=== PATIENT | female | born 1955 | race Caucasian/White ===

== ENCOUNTER 2017-10-05 08:41 | Emergency (ER) | payer OTHER ==
[~2017-10-05] VITALS: Ht 149.9 cm; Wt 49.4 kg
[~2017-10-05 08:41] MED LIST: AMBIEN10 MG; CALAN SR 120MG120 MG; CATAPRES0.1 MG; CLONAZEPAM0.5 MG; DIOVAN320 MG; GLIMEPIRIDE1 MG; INTESTINEX1 CA1 PO; RYBIX ODT50 MG
[2017-10-05] MEDS ORDERED: ULTRACET PO (15:32)
[2017-10-05] MEDS ORDERED: CIPRO500 MG PO (15:32)
[2017-10-05] MEDS ORDERED: FLAGYL500MG PO (15:32)
== END 2017-10-05 16:39 | disposition home or self-care (01) ==
LOC: ER 08:41
DX: K62.5 Hemorrhage of anus and rectum (principal); K57.30 Diverticulosis of large intestine without perforation or abscess without bleeding

== ENCOUNTER → 2017-11-22 | Day surgery (SDC) | payer OTHER ==
[~2017-11-22] MED LIST changes: +CIPRO500 MG PO; +FLAGYL500MG PO; +ULTRACET PO
== END | disposition home or self-care (01) ==
LOC: ADM 11-17 14:30 → AMB-ENDOS 06:00
DX: K62.89 Other specified diseases of anus and rectum (principal)

== ENCOUNTER 2018-03-21 14:25 | Inpatient (IN) | payer OTHER ==
[~2018-03-21] VITALS: Ht 149.9 cm; Wt 49.0 kg
[~2018-03-21 14:25] MED LIST changes: +AMARYL PO; +DIOVAN HCT 3201 EACH PO; +GABAPENTIN600 MG PO; +JARDIANCE25 MG PO; +LANTUS SOL100 UNIT/1; +NAPROXEN500 M1 PO; +ONGLYZA5 MG PO; +TRAMADOL HCL50 MG PO
[2018-03-24] MEDS ORDERED: GLIMEPIRIDE4 MG PO (09:53)
[2018-03-26] MEDS ORDERED: TRAMADOL HCL50 MG PO (14:45)
[2018-03-26] MEDS ORDERED: INTEGRA F CAPS1 EACH PO (14:46)
[2018-03-26] MEDS ORDERED: INTESTINEX680 M1 PO (14:46)
== END 2018-03-26 15:22 | disposition home or self-care (01) | DRG 330 ==
LOC: O/R 03-23 06:10 → SURH 03-23 06:10 → O/R 03-23 08:14 → SURH 03-23 08:14
PROVIDERS: Surgery
PROC: 0DTN4ZZ Resection of Sigmoid Colon, Percutaneous Endoscopic Approach (ICD-10-PCS; 2018-03-23)
PROC: 0DTP4ZZ Resection of Rectum, Percutaneous Endoscopic Approach (ICD-10-PCS; 2018-03-23)
PROC: 0DQ84ZZ Repair Small Intestine, Percutaneous Endoscopic Approach (ICD-10-PCS; 2018-03-23)
PROC: 0DQE4ZZ Repair Large Intestine, Percutaneous Endoscopic Approach (ICD-10-PCS; principal; 2018-03-23 13:00)
DX: K57.32 Diverticulitis of large intestine without perforation or abscess without bleeding (principal); K91.71 Accidental puncture and laceration of a digestive system organ or structure during a digestive system procedure; K66.0 Peritoneal adhesions (postprocedural) (postinfection); Z43.3 Encounter for attention to colostomy

== ENCOUNTER 2021-08-11 11:36 | Emergency (ER) | payer OTHER ==
[~2021-08-11] VITALS: Ht 152.4 cm; Wt 60.3 kg
[~2021-08-11 11:36] MED LIST changes: +GLIMEPIRIDE4 MG PO; +INTEGRA F CAPS1 EACH PO; +INTESTINEX680 M1 PO
[2021-08-11] MEDS ORDERED: AMOX-CLAV 875-1 EAC1 PO (16:34)
[2021-08-11] MEDS ORDERED: INTESTINEX680 M1 PO (16:34)
[2021-08-11] MEDS ORDERED: CELEBREX100 MG PO (16:34)
[2021-09-03] MEDS ORDERED: GLUMETZA500 MG (11:38)
== END 2021-08-11 16:56 | disposition left against medical advice (07) ==
LOC: ER 11:36
DX: S02.31XA Fracture of orbital floor, right side, initial encounter for closed fracture (principal); S02.2XXA Fracture of nasal bones, initial encounter for closed fracture; W18.30XA Fall on same level, unspecified, initial encounter; S73.101A Unspecified sprain of right hip, initial encounter; Y93.9 Activity, unspecified; Y92.019 Unspecified place in single-family (private) house as the place of occurrence of the external cause; Y99.9 Unspecified external cause status

== ENCOUNTER → 2021-09-03 | Emergency (ER) | payer OTHER ==
[~2021-09-03] VITALS: Ht 147.3 cm; Wt 50.8 kg
[~2021-09-03] MED LIST changes: +AMOX-CLAV 875-1 EAC1 PO; +CELEBREX100 MG PO; +GLUMETZA500 MG
== END | disposition left against medical advice (07) ==
LOC: ER 11:20
DX: Z53.21 Procedure and treatment not carried out due to patient leaving prior to being seen by health care provider (principal); R19.7 Diarrhea, unspecified